=== PATIENT | female | born 1980 | race African-American/Black ===

== ENCOUNTER → 2017-12-13 | Outpatient (CLI) | payer BC, MEDICAID ==
[~2017-12-13] MED LIST: METH500T3 PO; NAPR550 PO; Z.0.NO CURRENT MEDS
== END ==
LOC: HPND 10:58
PROVIDERS: ATTEND Obstetrics & Gynecology
DX: O09.522 Supervision of elderly multigravida, second trimester (principal); O99.332 Smoking (tobacco) complicating pregnancy, second trimester
CPT/HCPCS: 36415; 76811